=== PATIENT | male | born 1955 | race Caucasian/White ===

== ENCOUNTER 2018-10-10 18:57 | Emergency (ER) | payer OTHER ==
[~2018-10-10] VITALS: Ht 182.9 cm; Wt 108.9 kg
[2018-10-10] MEDS ORDERED: METFORMIN HCL500 MG (19:08)
[2018-10-10] MEDS ORDERED: COZAAR 25 MG TA25 M1 (19:09)
[2018-10-10] MEDS ORDERED: PIOGLITAZONE15 MG (19:09)
[2018-10-10] MEDS ORDERED: NEXIUM40 MG PO (19:10)
[2018-10-10] MEDS ORDERED: KEFLEX500 M1 PO (20:29)
[2018-10-10 20:49] VITALS: BP 156/96
== END 2018-10-10 20:51 | disposition home or self-care (01) ==
LOC: M.ERS 18:57
DX: S02.5XXA Fracture of tooth (traumatic), initial encounter for closed fracture (principal); S01.512A Laceration without foreign body of oral cavity, initial encounter; E11.9 Type 2 diabetes mellitus without complications; I10 Essential (primary) hypertension; W01.0XXA Fall on same level from slipping, tripping and stumbling without subsequent striking against object, initial encounter; Y93.89 Activity, other specified; Y92.098 Other place in other non-institutional residence as the place of occurrence of the external cause; Y99.8 Other external cause status

== ENCOUNTER → 2021-12-20 | Outpatient (CLI) | payer OTHER ==
[~2021-12-20] MED LIST: COZAAR 25 MG TA25 M1; KEFLEX500 M1 PO; METFORMIN HCL500 MG; NEXIUM40 MG PO; PIOGLITAZONE15 MG
== END ==
LOC: M.CT 10:55
PROVIDERS: ATTEND Nurse Practitioner Family
DX: Z13.6 Encounter for screening for cardiovascular disorders (principal); E78.5 Hyperlipidemia, unspecified